=== PATIENT | male | born 1950 | race Caucasian/White ===

== ENCOUNTER 2022-09-07 17:52 | Emergency (ER) | payer BC ==
[~2022-09-07] VITALS: Ht 182.9 cm; Wt 95.2 kg
[2022-09-07 18:15] VITALS: BP 156/67
[2022-09-07] MEDS ORDERED: Prednisone20 MG PO (19:55)
== END 2022-09-07 20:17 | disposition home or self-care (01) ==
LOC: ER 17:52
DX: M10.9 Gout, unspecified (principal); Z79.52 Long term (current) use of systemic steroids
CPT/HCPCS: 96372; 99283-25; J1885; J7512